=== PATIENT | male | born 1965 | race African-American/Black ===

== ENCOUNTER 2018-01-28 16:05 | Inpatient (IN) | payer OTHER ==
[~2018-01-28] VITALS: Ht 188 cm; Wt 74.2 kg
[2018-01-28] MEDS ORDERED: ASPirin 81 mg TAB PO ONE (16:15)
[2018-01-28 17:23] LABS: Basophils # (auto) 0.1 uL; Basophils % (auto) 0.9 % (0.0-2.0); Eosinophils # (auto) 0 uL; Eosinophils % (auto) 0.4 % (0.0-7.0); Hematocrit 46.5 % (41.0-53.0); Hemoglobin 15.3 g/dL (13.5-17.5); Lymphocytes # (auto) 2.4 uL; Lymphocytes % (auto) 39.8 % (10.0-50.0); Mean Corpuscular Hemoglobin 27.3 pg (28.0-32.0); Mean Corpuscular Hgb Conc. 32.8 g/dL (32.0-36.0); Mean Corpuscular Volume 83.1 fL (80.0-100.0); Monocytes # (auto) 0.5 uL; Monocytes % (auto) 8.8 % (0.0-12.0); Neutrophils % (auto) 50.1 % (37.0-80.0); Nucleated Red Blood Cells % 0.1 %; Platelet Count (auto) 169 10^3/uL (140-450); Red Cell Distribution Width 15.1 % (11.8-14.3)
[2018-01-28 17:49] LABS: Alanine Aminotransferase 39 U/L (16-61); Albumin 4.1 g/dL (3.4-5.0); Alkaline Phosphatase 96 U/L (45-117); Anion Gap 6 (5-15); Aspartate Aminotransferase 21 U/L (15-37); BUN/Creatinine Ratio 10.6; Bilirubin, Total 0.7 mg/dL (0.2-1.0); Blood Urea Nitrogen 15 mg/dL (7-18); Carbon Dioxide 25 mmol/L (21-32); Chloride 107 mmol/L (98-107); GFR African American 67 mL/min; GFR Non-African American 56 mL/min; Glucose 91 mg/dL (74-106); Magnesium 2.7 mg/dL (1.6-2.6); Sodium 138 mmol/L (136-145); Total Protein 8.8 g/dL (6.4-8.2)
[2018-01-28] MEDS: NITROGLYCERIN 0.4MG/HR TOPICAL PATCH TD SCH (18:00)
[2018-01-28] MEDS ORDERED: MORPHINE SULF INJ 2 MG/ML SYRINGE 1ML IV PRN (18:15)
[2018-01-28] MEDS ORDERED: NITROGLYCERIN 0.4 MG SL TAB SL PRN (18:15)
[2018-01-28 20:30] VITALS: BP 124/75
[2018-01-28 22:00] VITALS: BP 124/75
[2018-01-28] MEDS ORDERED: HYDROcodone-ACET 10/325MG TAB PO PRN (23:45)
[2018-01-29] MEDS ORDERED: LEV50T PO (01:04)
[2018-01-29 05:00] VITALS: BP 132/78
[2018-01-29] MEDS ORDERED: ADENOSINE 67 MG in GIVE UN-DILUTED 0 ML IV STA (08:25)
[2018-01-29 08:49] VITALS: BP 148/73
[2018-01-29 09:12] VITALS: BP 138/76
[2018-01-29] MEDS: METOPROLOL TARTRATE 25 MG TAB PO SCH (10:00)
[2018-01-29] MEDS: ASPirin 81 mg TAB PO SCH (10:51)
[2018-01-29 12:21] VITALS: BP 127/77
[2018-01-29 17:37] VITALS: BP 149/79
[2018-01-29] MEDS: NITROGLYCERIN 0.4MG/HR TOPICAL PATCH TD SCH (18:00)
[2018-01-29 22:00] VITALS: BP 135/75
[2018-01-30 05:00] VITALS: BP 126/70
[2018-01-30 07:52] VITALS: BP 137/77
[2018-01-30] MEDS: METOPROLOL TARTRATE 25 MG TAB PO SCH (10:00)
[2018-01-30] MEDS: ASPirin 81 mg TAB PO SCH (10:53)
[2018-01-30] MEDS: ENOXAPARIN SOD 40 MG/0.4 ML SYRINGE SC SCH (10:53)
[2018-01-30 12:04] VITALS: BP 131/75
[2018-01-30 17:02] VITALS: BP 143/74
[2018-01-30] MEDS: NITROGLYCERIN 0.4MG/HR TOPICAL PATCH TD SCH (18:00)
[2018-01-30 22:00] VITALS: BP 146/91
[2018-01-31 05:29] VITALS: BP 127/76
[2018-01-31 09:00] VITALS: BP 145/81
[2018-01-31] MEDS: METOPROLOL TARTRATE 25 MG TAB PO SCH (11:00)
[2018-01-31] MEDS: ASPirin 81 mg TAB PO SCH (11:00)
[2018-01-31] MEDS: ENOXAPARIN SOD 40 MG/0.4 ML SYRINGE SC SCH (11:00)
[2018-01-31 13:00] VITALS: BP 142/82
[2018-01-31 17:00] VITALS: BP 130/89
[2018-01-31] MEDS: NITROGLYCERIN 0.4MG/HR TOPICAL PATCH TD SCH (18:00)
[2018-01-31 18:43] VITALS: BP 130/89
[2018-01-31 20:48] VITALS: BP 141/84
== END 2018-01-31 19:30 | DRG 303 ==
LOC: ER 16:05 → EEVIPCON 16:05 → TELE 16:06 → EEVIPCON 16:06 → TELE-E-ADS 20:29
PROVIDERS: ADMIT Internal Medicine; ATTEND Internal Medicine
DX: I25.10 Atherosclerotic heart disease of native coronary artery without angina pectoris (principal); E78.00 Pure hypercholesterolemia, unspecified; I11.9 Hypertensive heart disease without heart failure; G43.909 Migraine, unspecified, not intractable, without status migrainosus; J45.909 Unspecified asthma, uncomplicated; Z83.3 Family history of diabetes mellitus; Z87.828 Personal history of other (healed) physical injury and trauma
CPT/HCPCS: 36415; 70450; 71045; 78452; 80053; 83735; 84443; 84484; 85025; 87081; 93005; 93017; 94761; J0153